=== PATIENT | female | born 2000 | race Two or more races ===

== ENCOUNTER 2019-03-17 05:20 | Inpatient (IN) | payer MEDICAID ==
[~2019-03-17 05:20] MED LIST: Bupivacaine 0.25% 10 ML SDV ONE; ePHEDrine/Normal Saline 25 MG/5 ML Syringe ONE
[2019-03-17] MEDS ORDERED: Calcium Carbonate 500 MG Tab.Chew PO PRN (05:44)
[2019-03-17] MEDS ORDERED: Ondansetron 4 MG/2 ML SDV IVPUSH PRN ×2 (05:44→10:25)
[2019-03-17] MEDS ORDERED: Sodium Chloride 0.9% 10 ML Syringe FLUSH PRN (05:44)
[2019-03-17] MEDS ORDERED: Nalbuphine 10 MG/1 ML Vial IVPUSH PRN (05:44)
[2019-03-17] MEDS ORDERED: Lidocaine 1% 50 ML MDV INJECT ONE (05:44)
[2019-03-17] MEDS ORDERED: Oxytocin/Lactated Ringers 10 UNIT/1,000 ML BAG IV SCH ×3 (05:45→14:15)
[2019-03-17] MEDS: Lactated Ringers 1,000 ML IV SCH ×3 (08:23→11:14)
--- NOTE | 2019-03-17 09:45 | PCM.LDHP ---
L&D History of Present Illness - General Date of Service: 03/17/19 Admit Problem/Dx: Patient Status Order with Admit Dx/Problem 03/17/19 05:31 Patient Status [ADT] Routine 03/17/19 05:44 Patient Status [ADT] Routine Admission Diagnosis/Problem Admission Diagnosis/Problem Active labor Source of Information: Patient - History of Present Illness Introduction:: [place] is a 18 year old female at 38 weeks 6 days by 14 week ultrasound who presents for evaluation of possible rupture of membranes. She reports that she was starting to have contractions and started at around 3 AM and were about 10 minutes apart and were getting closer and closer together until they were about 3-4 minutes apart. At around 4 AM she had a gush of clear fluid and has had continuous leaking since then. She reports that the contractions continued after her water had broken and were about 2-3 minutes apart. She reports good movement. She presents she was having some light vaginal bleeding when she went to the restroom at the hospital around 9 AM. Timing/Duration: Reports: sudden onset (With gush of clear fluid at around 4 AM) , constant/continuous (Leaking of fluid since initial gush) Location, : Reports: Pelvic Quality: Reports: Ache, Throbbing Severity: Moderate Present Illness Comments:: [place] is a 18-year-old at 38 weeks 6 days by 14 week ultrasound. She has had routine care with Dr. Demarco starting at 14 weeks gestational age. Her has been overall uncomplicated. She was given TDaP vaccine at 20 weeks gestational age. Her has been complicated by: * Rubella equivocal status on initial testing * History of pyelonephritis labs Blood type: O+ Antibody screen: Negative First trimester hemoglobin: 11.6 on 09/24/2018 Platelets: 310 on 09/24/2018 Urine culture: Escherichia coli urinary tract infection treated. Negative repeat urine culture on 11/06/2018 Rubella status: Equivocal Hepatitis B surface antigen: Negative RPR: Negative HIV: Negative Gonorrhea: Negative Chlamydia: Negative Genetic screening tests: Declined One hour glucose tolerance test: 106 Second trimester hematocrit/hemoglobin: 11.1 on 12/31/2018 Platelets: 144 on 12/31/2018 GBS status: Negative - Related Data Allergies/Adverse Reactions: Allergies Allergy/AdvReac Type Severity Reaction Status Date / Time No Known Allergies Allergy Verified 03/17/19 05:50 Home Medications: Home Meds Pnv No.122/Iron/Folic Acid [ Multi Tablet] 1 each PO DAILY 03/17/19 [ History] Past Medical History HEENT History: Reports: Other (See Below) Other HEENT History: Wears glasses Genitourinary History: Reports: Pyelonephritis 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 Neurological History: Reports: Migraines Hematologic History: Reports: Anemia - Past Surgical History Female Surgical History: Reports: Other (See Below) Other Female Surgeries/Procedures: laproscopy for dislodged IUD Social & Family History - Family History Family Medical History: Noncontributory - Tobacco Use Smoking Status *Q: Never Smoker - Alcohol Use Alcohol Use History: No - Recreational Drug Use Recreational Drug Use: No - Living Situation & Occupation Living situation: Reports: Single, with Significant Other Occupation: Employed H&P Review of Systems - Review of Systems: Review Of Systems: See Below General: Denies: Fever, Chills, Malaise, Weakness HEENT: Reports: Glasses. Denies: Headaches, Rhinitis, Post Nasal Drip, Sinus Congestion, Sore Throat, Visual Changes Pulmonary: Denies: Shortness of Breath, Wheezing, Pleuritic Chest Pain, Cough Cardiovascular: Denies: Chest Pain, Palpitations, Dyspnea on Exertion, Orthopnea Gastrointestinal: Denies: Abdominal Pain, Constipation, Diarrhea, Nausea, Vomiting Genitourinary: Denies: Dysuria, Frequency, Burning, Pain, Urgency Musculoskeletal: Reports: Back Pain Skin: Denies: Rash, Lesions Psychiatric: Denies: Depression, Anxiety L&D Exam - Exam Exam: See Below - Vital Signs Vital Signs: Last Vital Signs Temp 36.2 C 03/17/19 05:45 Pulse 103 H 03/17/19 05:45 Resp 16 03/17/19 05:45 BP 103/68 03/17/19 05:45 Pulse Ox 98 03/17/19 05:45 Weight: 77.564 kg - OB Specific Contraction Duration (sec): 45-60 Contraction Frequency (min): 2-4 Contraction Intensity: Moderate to Strong Movement: Active Heart Tones: Present Heart Tones per Min: 145 (+15 x 15 accelerations, no decelerations) Heart Rate (FHR) Variability: Moderate (6-25 bmp) Presentation: Vertex Estimated Weight: 6.5-7 pounds by Thiago's - Adan Score Adan Score Cervix Position: Midposition Adan Score Consistency: Soft Adan Score Effacement: >80% (80%) Adan Score Dilation: > 5 cm (5 cm) Adan Score Infant's Station: -3 Adan Score Total: 9 - Exam General: Alert, Oriented HEENT: Conjunctiva Clear, EOMI Neck: Supple, Trachea Midline Lungs: Clear to Auscultation, Normal Respiratory Effort Cardiovascular: Regular Rate, Regular Rhythm GI/Abdominal Exam: Soft, Non-Tender, No Distention. No: Guarding, Rigid, Rebound Genitourinary: Normal external exam Extremities: Normal Inspection, Non-Tender, No Pedal Edema Skin: Warm, Dry, Intact Psychiatric: Alert, Normal Affect, Normal Mood - Patient Data Lab Results Last 24 hrs: Laboratory Results - last 24 hr 03/17/19 Range/Units 06:15 WBC 6.43 (3.98-10.04) K/mm3 RBC 3.94 L (3.98-5.22) M/mm3 Hgb 12.2 (11.2-15.7) gm/dl Hct 35.5 (34.1-44.9) % MCV 90.1 (79.4-94.8) fl MCH 31.0 (25.6-32.2) pg MCHC 34.4 (32.2-35.5) g/dl RDW Std Deviation 44.8 (36.4-46.3) fL Plt Count 202 (182-369) K/mm3 MPV 9.0 L (9.4-12.3) fl Neut % (Auto) 68.3 (34.0-71.1) % Lymph % (Auto) 20.8 (19.3-51.7) % [place] % (Auto) 7.9 (4.7-12.5) % Eos % (Auto) 2.2 (0.7-5.8) Baso % (Auto) 0.3 (0.1-1.2) % Neut # (Auto) 4.39 (1.56-6.13) K/mm3 Lymph # (Auto) 1.34 (1.18-3.74) K/mm3 [place] # (Auto) 0.51 H (0.24-0.36) K/mm3 Eos # (Auto) 0.14 (0.04-0.36) K/mm3 Baso # (Auto) 0.02 (0.01-0.08) K/mm3 Result Diagrams: 03/17/19 06:15 - Problem List (1) 38 weeks gestation of SNOMED Code(s): 06439544 ICD Code: Z3A.38 - 38 WEEKS GESTATION OF Status: Acute Current Visit: Yes (2) Rubella non-immune status, antepartum SNOMED Code(s): 452236737 ICD Code: O99.89 - OTH DISEASES AND CONDITIONS COMPL PREG/CHLDBRTH; Z28.3 - UNDERIMMUNIZATION STATUS Status: Acute Current Visit: Yes Problem List Initiated/Reviewed/Updated: Yes Orders Last 24hrs: Active Orders 24 hr Category Date Time Status Patient Status [ADT] Routine ADT 03/17/19 05:44 Active Activity as Tolerated [RC] PFP Care 03/17/19 05:44 Active Communication Order [RC] ASDIRECTED Care 03/17/19 05:44 Active Notify Provider [RC] PFP Care 03/17/19 05:44 Active Notify Provider [RC] PRN Care 03/17/19 05:44 Active Peripheral IV Care [RC] Q2HR Care 03/17/19 05:45 Active Pump Management, Intrathecal [RC] ASDIRECTED Care 03/17/19 05:45 Active Urinary Catheter Assessment [RC] ASDIRECTED Care 03/17/19 05:44 Active Regular Diet [DIET] Diet 03/17/19 Breakfast Active BLOOD BANK HOLD SPECIMEN [BBK] Stat Lab 03/17/19 05:44 Ordered RAPID PLASMA REAGIN,RPR [CHEM] Stat Lab 03/17/19 06:15 Received Calcium Carbonate [Tums] Med 03/17/19 05:44 Active 1,000 mg PO Q2H PRN Lactated Ringers [Ringers, Lactated] 1,000 ml Med 03/17/19 05:45 Active IV ASDIRECTED Nalbuphine [Nubain] Med 03/17/19 05:44 Active 10 mg IVPUSH Q2H PRN Ondansetron [Zofran] Med 03/17/19 05:44 Active 4 mg IVPUSH Q4H PRN Oxytocin/Lactated Ringers [Pitocin in LR 10 Units/1,000 Med 03/17/19 05:45 Active ML] 10 unit in 1,000 ml IV .CONTINUOUS Oxytocin/Lactated Ringers [Pitocin in LR 10 Units/1,000 Med 03/17/19 08:30 Active ML] 10 unit in 1,000 ml IV TITRATE Sodium Chloride 0.9% [Saline Flush] Med 03/17/19 05:44 Active 10 ml FLUSH ASDIRECTED PRN Electronic Heart Tones Ext w TOCO [WOMSER] Oth 03/17/19 05:44 Ordered Routine Electronic Heart Tones Internal [WOMSER] Per Unit Oth 03/17/19 05:44 Ordered Routine Peripheral IV Insertion Adult [OM.PC] Routine Oth 03/17/19 05:44 Ordered Resuscitation Status Routine Resus Stat 03/17/19 05:31 Ordered Medication Orders Calcium Carbonate/Glycine (Tums) 1,000 mg PO Q2H PRN PRN Reason: Indigestion Lactated Ringer's (Ringers, Lactated) 1,000 mls @ 100 mls/hr IV ASDIRECTED SARABJIT Last Admin: 03/17/19 08:23 Dose: 100 mls/hr Oxytocin/Lactated Ringer's (Pitocin In Lr 10 Units/1,000 Ml) 10 unit in 1,000 mls @ 500 mls/hr IV .CONTINUOUS SARABJIT Oxytocin/Lactated Ringer's (Pitocin In Lr 10 Units/1,000 Ml) 10 unit in 1,000 mls @ 12 mls/hr IV TITRATE SARABJIT; Protocol Last Titration: 03/17/19 08:55 Dose: 4 munits/min, 24 mls/hr Admin: 03/17/19 08:23 Dose: 2 munits/min, 12 mls/hr Nalbuphine HCl (Nubain) 10 mg IVPUSH Q2H PRN PRN Reason: Pain Ondansetron HCl (Zofran) 4 mg IVPUSH Q4H PRN PRN Reason: Nausea/Vomiting Sodium Chloride (Saline Flush) 10 ml FLUSH ASDIRECTED PRN PRN Reason: Keep Vein Open Assessment/Plan Comment:: Refer to observation for spontaneous rupture of membranes Start Pitocin for augmentation of labor with spacing out of contractions after being on labor and delivery Continuous monitoring Place IV and have Lactated Ringer's at 125 ml/hr May have small amounts of regular diet Activity as tolerated May have epidural as desired Plans to breast-feed after delivery Anticipate vaginal delivery unless otherwise indicated Christian Copeland M.D. 9:52 AM 05/17/2018
[2019-03-17] MEDS ORDERED: fentaNYL 100 MCG/2 ML SDV EPIDUR PRN (10:25)
[2019-03-17] MEDS ORDERED: fentaNYL/Bupivacaine/NS 2 MCG-0.125% 250 ML EPIDUR PRN (10:25)
--- NOTE | 2019-03-17 10:28 | PCM.PREANE ---
Preanesthetic Assessment - Anesthesia/Transfusion/Family Hx Anesthesia History: Prior Anesthesia Without Reaction Family History of Anesthesia Reaction: No Transfusion History: No Prior Transfusion(s) Intubation History: Unknown - Review of Systems General: No Symptoms Pulmonary: No Symptoms Cardiovascular: No Symptoms Gastrointestinal: No Symptoms Neurological: No Symptoms (back pain with ), Seizure (at age of 9, no more to note of.) Other: Reports: None - Physical Assessment NPO Status Date: 03/17/19 NPO Status Time: 07:30 Vital Signs: Last Vital Signs Temp 36.2 C 03/17/19 05:45 Pulse 103 H 03/17/19 05:45 Resp 16 03/17/19 05:45 BP 103/68 03/17/19 05:45 Pulse Ox 98 03/17/19 05:45 Height: 1.55 m Weight: 77.564 kg ASA Class: 2 Mental Status: Alert & Oriented x3 Airway Class: Mallampati = 2 Dentition: Reports: Normal Dentition, Caries Thyro-Mental Finger Breadths: 3 Mouth Opening Finger Breadths: 3 ROM/Head Extension: Full Lungs: Clear to Auscultation, Normal Respiratory Effort Cardiovascular: Regular Rate, Regular Rhythm, No Murmurs - Lab Values: Laboratory Last Values WBC 6.43 K/mm3 (3.98-10.04) 03/17/19 06:15 RBC 3.94 M/mm3 (3.98-5.22) L 03/17/19 06:15 Hgb 12.2 gm/dl (11.2-15.7) 03/17/19 06:15 Hct 35.5 % (34.1-44.9) 03/17/19 06:15 MCV 90.1 fl (79.4-94.8) 03/17/19 06:15 MCH 31.0 pg (25.6-32.2) 03/17/19 06:15 MCHC 34.4 g/dl (32.2-35.5) 03/17/19 06:15 RDW Std Deviation 44.8 fL (36.4-46.3) 03/17/19 06:15 Plt Count 202 K/mm3 (182-369) 03/17/19 06:15 MPV 9.0 fl (9.4-12.3) L 03/17/19 06:15 Neut % (Auto) 68.3 % (34.0-71.1) 03/17/19 06:15 Lymph % (Auto) 20.8 % (19.3-51.7) 03/17/19 06:15 [place] % (Auto) 7.9 % (4.7-12.5) 03/17/19 06:15 Eos % (Auto) 2.2 (0.7-5.8) 03/17/19 06:15 Baso % (Auto) 0.3 % (0.1-1.2) 03/17/19 06:15 Neut # (Auto) 4.39 K/mm3 (1.56-6.13) 03/17/19 06:15 Lymph # (Auto) 1.34 K/mm3 (1.18-3.74) 03/17/19 06:15 [place] # (Auto) 0.51 K/mm3 (0.24-0.36) H 03/17/19 06:15 Eos # (Auto) 0.14 K/mm3 (0.04-0.36) 03/17/19 06:15 Baso # (Auto) 0.02 K/mm3 (0.01-0.08) 03/17/19 06:15 Above labs reviewed and noted and within acceptable ranges to proceed with epidural if desired. - Allergies Allergies/Adverse Reactions: Allergies Allergy/AdvReac Type Severity Reaction Status Date / Time No Known Allergies Allergy Verified 03/17/19 05:50 - Anesthesia Plan Pre-Op Medication Ordered: None - Acknowledgements Anesthesia Type Planned: Epidural Pt an Appropriate Candidate for the Planned Anesthesia: Yes Alternatives and Risks of Anesthesia Discussed w Pt/Guardian: Yes Pt/Guardian Understands and Agrees with Anesthesia Plan: Yes PreAnesthesia Questionnaire HEENT History: Reports: Other (See Below) Other HEENT History: Wears glasses Genitourinary History: Reports: Pyelonephritis 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: Neurological History: Reports: Migraines Hematologic History: Reports: Anemia - Past Surgical History Female Surgical History: Reports: Other (See Below) Other Female Surgeries/Procedures: laproscopy for dislodged IUD - SUBSTANCE USE Smoking Status *Q: Never Smoker Recreational Drug Use History: No - HOME MEDS Home Medications: Home Meds Pnv No.122/Iron/Folic Acid [ Multi Tablet] 1 each PO DAILY 11/03/19 [ History] - CURRENT (IN HOUSE) MEDS Current Meds: Current Medications Calcium Carbonate/Glycine (Tums) 1,000 mg PO Q2H PRN PRN Reason: Indigestion Ephedrine Sulfate (Ephedrine Sulfate) 5 mg IVPUSH ASDIRECTED PRN PRN Reason: Hypotension Fentanyl (Sublimaze) 100 mcg EPIDUR Q3H PRN PRN Reason: Pain Fentanyl/Bupivacaine HCl (Fentanyl/Bupivacaine/Ns 2 Mcg-0.125% 250 Ml) ml EPIDUR CONTINUOUS PRN PRN Reason: Pain Lactated Ringer's (Ringers, Lactated) 1,000 mls @ 100 mls/hr IV ASDIRECTED SARABJIT Last Admin: 03/17/19 08:23 Dose: 100 mls/hr Oxytocin/Lactated Ringer's (Pitocin In Lr 10 Units/1,000 Ml) 10 unit in 1,000 mls @ 500 mls/hr IV .CONTINUOUS SARABJIT Oxytocin/Lactated Ringer's (Pitocin In Lr 10 Units/1,000 Ml) 10 unit in 1,000 mls @ 12 mls/hr IV TITRATE SARABJIT; Protocol Last Titration: 03/17/19 08:55 Dose: 4 munits/min, 24 mls/hr Nalbuphine HCl (Nubain) 10 mg IVPUSH Q2H PRN PRN Reason: Pain Ondansetron HCl (Zofran) 4 mg IVPUSH Q4H PRN PRN Reason: Nausea/Vomiting Ondansetron HCl (Zofran) 4 mg IVPUSH ONETIME PRN PRN Reason: Nausea/Vomiting Sodium Chloride (Saline Flush) 10 ml FLUSH ASDIRECTED PRN PRN Reason: Keep Vein Open Discontinued Medications Lidocaine HCl (Xylocaine 1%) 20 ml INJECT ONETIME ONE Stop: 03/17/19 05:45
[2019-03-17] MEDS: ePHEDrine 50 MG/ML SDV IVPUSH PRN ×2 (11:11→11:14)
--- NOTE | 2019-03-17 11:17 | PCM.SN ---
- Free Text/Narrative Note: Anesthesia Note: Epidural rate decreased to 8ml/hr, to support blood pressure control.
[2019-03-17] MEDS ORDERED: Hydrocortisone Acetate 25 MG Supp RECTAL PRN (14:12)
[2019-03-17] MEDS ORDERED: Benzocaine/Menthol 20%-0.5% Spray 56 GM Canister TOP PRN (14:12)
[2019-03-17] MEDS ORDERED: Measles, Mumps & Rubella Vaccine 0.5 ML SDV SUBCUT ONE (14:12)
[2019-03-17] MEDS ORDERED: Magnesium Hydroxide 400 MG/5 ML Susp 30 ML Cup PO PRN (14:12)
[2019-03-17] MEDS ORDERED: Witch Hazel Medicated Pads 40/Jar TOP PRN (14:12)
--- NOTE | 2019-03-17 14:18 | PCM.DEL ---
L & D Note - General Info Date of Service: 03/17/19 Mother's Due Date: 03/25/19 - Delivery Note Labor: Spontaneous, Augmented by Oxytocin Cervical Ripening Method: Oxytocin Delivery Outcome: Livebirth Delivery Method: Spontaneous Vaginal Delivery-Single Presentation: Right Occiput Anterior (TANNER) Nuchal Cord: None Prep: Povidone-Iodine (Betadine Anesthesia Type: Epidural Amniotic Fluid Description: Clear Episiotomy Type: None Laceration: None Placenta: Intact, Spontaneous Cord: 3 Vessels Estimated Blood Loss: 200 Resuscitation Needed: No [place]: Bulb Syringe, Stimulated, Warmed, [place] Used Provider: Christian Copeland Score 1 min: 8 Score 5 min: 9 Second Stage Interventions: Reports: Pushing Effectively, Pushing, Stirrups/Leg Supports Delivery Comments (Free Text/Narrative):: Stage I: [place] was admitted for spontaneous rupture of membranes. On admission her cervix was dilated to 4 cm. She was GBS negative. She was started on Pitocin for augmentation of labor with spacing out of her contractions. She was given an epidural for anesthesia. She progressed to complete and pushing. Stage II: On 03/17/2019 she had a normal vaginal delivery of a live female infant at 13:43. Apgars of 8 & 9. Weight of 3100 g (6 lbs 13.3 oz). Length of 19.5 inches. There was no nuchal cord. Infant was delivered in TANNER position. The cord was doubly clamped and cut by father of the infant. Infant was placed on mother's abdomen. Stage III: She had a spontaneous delivery of an intact placenta in [place] presentation. Three vessel cord. She was given pitocin and fundal massage. She had no lacerations. Mom and baby were stable to recovery. EBL of 200 mL. Christian Copeland MD 2:15 PM 03/17/2019 - General Info Date of Service: 03/17/19 - Patient Data Vitals - Most Recent: Last Vital Signs Temp 36.2 C 03/17/19 05:45 Pulse 103 H 03/17/19 05:45 Resp 16 03/17/19 05:45 BP 103/68 03/17/19 05:45 Pulse Ox 98 03/17/19 05:45 Weight - Most Recent: 77.564 kg I&O - Last 24 Hours: Intake & Output 03/16/19 03/17/19 03/17/19 23:59 06:59 14:59 Intake Total 2830 Output Total 700 Balance 2130 Lab Results Last 24 Hours: Laboratory Results - last 24 hr 03/17/19 Range/Units 06:15 WBC 6.43 (3.98-10.04) K/mm3 RBC 3.94 L (3.98-5.22) M/mm3 Hgb 12.2 (11.2-15.7) gm/dl Hct 35.5 (34.1-44.9) % MCV 90.1 (79.4-94.8) fl MCH 31.0 (25.6-32.2) pg MCHC 34.4 (32.2-35.5) g/dl RDW Std Deviation 44.8 (36.4-46.3) fL Plt Count 202 (182-369) K/mm3 MPV 9.0 L (9.4-12.3) fl Neut % (Auto) 68.3 (34.0-71.1) % Lymph % (Auto) 20.8 (19.3-51.7) % [place] % (Auto) 7.9 (4.7-12.5) % Eos % (Auto) 2.2 (0.7-5.8) Baso % (Auto) 0.3 (0.1-1.2) % Neut # (Auto) 4.39 (1.56-6.13) K/mm3 Lymph # (Auto) 1.34 (1.18-3.74) K/mm3 [place] # (Auto) 0.51 H (0.24-0.36) K/mm3 Eos # (Auto) 0.14 (0.04-0.36) K/mm3 Baso # (Auto) 0.02 (0.01-0.08) K/mm3 Med Orders - Current: Current Medications Acetaminophen (Tylenol) 650 mg PO Q6H PRN PRN Reason: mild pain or fever Benzocaine/Menthol (Dermoplast Pain Relief [place]) 0 gm TOP ASDIRECTED PRN PRN Reason: Perineal Comfort Measure Docusate Sodium (Colace) 100 mg PO BID PRN PRN Reason: Constipation Hydrocortisone Acetate (Anucort-Hc) 25 mg RECTAL BID PRN PRN Reason: Hemorrhoid pain Oxytocin/Lactated Ringer's (Pitocin In Lr 10 Units/1,000 Ml) 10 unit in 1,000 mls @ 100 mls/hr IV TITRATE SARABJIT; Protocol Ibuprofen (Motrin) 600 mg PO Q6H PRN PRN Reason: Mild pain or fever Magnesium Hydroxide (Milk Of Magnesia) 30 ml PO BEDTIME PRN PRN Reason: Constipation Measles/Mumps/Rubella Vaccine Live (M-M-R Ii Vaccine) 0.5 ml SUBCUT .ONCE ONE Stop: 03/17/19 14:13 Prenat Multivit/[place]/Iron/Folic Ac ( Plus Iron) 1 each PO DAILY SARABJIT [place] (Tucks) 1 pad TOP ASDIRECTED PRN PRN Reason: Perineal Comfort Measure Discontinued Medications Calcium Carbonate/Glycine (Tums) 1,000 mg PO Q2H PRN PRN Reason: Indigestion Ephedrine Sulfate (Ephedrine Sulfate) 5 mg IVPUSH ASDIRECTED PRN PRN Reason: Hypotension Last Admin: 03/17/19 11:14 Dose: 5 mg Fentanyl (Sublimaze) 100 mcg EPIDUR Q3H PRN PRN Reason: Pain Last Admin: 03/17/19 10:35 Dose: 100 mcg Fentanyl/Bupivacaine HCl (Fentanyl/Bupivacaine/Ns 2 Mcg-0.125% 250 Ml) 0 ml EPIDUR CONTINUOUS PRN PRN Reason: Pain Last Admin: 03/17/19 10:35 Dose: 250 ml Lactated Ringer's (Ringers, Lactated) 1,000 mls @ 100 mls/hr IV ASDIRECTED SARABJIT Last Admin: 03/17/19 11:14 Dose: 100 mls/hr Oxytocin/Lactated Ringer's (Pitocin In Lr 10 Units/1,000 Ml) 10 unit in 1,000 mls @ 500 mls/hr IV .CONTINUOUS SARABJIT Oxytocin/Lactated Ringer's (Pitocin In Lr 10 Units/1,000 Ml) 10 unit in 1,000 mls @ 12 mls/hr IV TITRATE SARABJIT; Protocol Last Titration: 03/17/19 13:44 Dose: 500 mls/hr Lidocaine HCl (Xylocaine 1%) 20 ml INJECT ONETIME ONE Stop: 03/17/19 05:45 Nalbuphine HCl (Nubain) 10 mg IVPUSH Q2H PRN PRN Reason: Pain Ondansetron HCl (Zofran) 4 mg IVPUSH Q4H PRN PRN Reason: Nausea/Vomiting Ondansetron HCl (Zofran) 4 mg IVPUSH ONETIME PRN PRN Reason: Nausea/Vomiting Sodium Chloride (Saline Flush) 10 ml FLUSH ASDIRECTED PRN PRN Reason: Keep Vein Open - Problem List & Annotations (1) 38 weeks gestation of SNOMED Code(s): 06733722 Code(s): Z3A.38 - 38 WEEKS GESTATION OF Status: Acute Current Visit: Yes (2) Rubella non-immune status, antepartum SNOMED Code(s): 615383114 Code(s): O99.89 - OTH DISEASES AND CONDITIONS COMPL PREG/CHLDBRTH; Z28.3 - UNDERIMMUNIZATION STATUS Status: Acute Current Visit: Yes (3) Vaginal delivery SNOMED Code(s): 116398678 Code(s): O80 - ENCOUNTER FOR FULL-TERM UNCOMPLICATED DELIVERY Status: Acute Current Visit: Yes - Problem List Review Problem List Initiated/Reviewed/Updated: Yes - My Orders Last 24 Hours: My Active Orders 03/17/19 05:31 Resuscitation Status Routine 03/17/19 06:15 RAPID PLASMA REAGIN,RPR [CHEM] Stat 03/17/19 14:12 Patient Status [ADT] Routine Activity as Tolerated [RC] PER UNIT ROUTINE May Shower [RC] ASDIRECTED Notify Provider Vital Signs [RC] ASDIRECTED Vital Signs [RC] ASDIRECTED Acetaminophen [Tylenol] 650 mg PO Q6H PRN Benzocaine/Menthol [Dermoplast Pain Relief [place]] See Dose Instructions TOP ASDIRECTED PRN Docusate Sodium [Colace] 100 mg PO BID PRN Hydrocortisone Acetate [Anucort-HC] 25 mg RECTAL BID PRN Ibuprofen [Motrin] 600 mg PO Q6H PRN Magnesium Hydroxide [Milk of Magnesia] 30 ml PO BEDTIME PRN Measles, Mumps & Rubella [M-M-R II Vaccine] 0.5 ml SUBCUT .ONCE ONE [place] [Tucks] 1 pad TOP ASDIRECTED PRN Assess Lochia [WOMSER] Per Unit Routine Assess Uterine Involution [WOMSER] Per Unit Routine Breast Pump [WOMSER] Per Unit Routine Ice Therapy [OM.PC] Per Unit Routine Medication Administration Instruction [OM.PC] Routine Perineal Care [OM.PC] Per Unit Routine Peripheral IV Discontinue [OM.PC] Routine Sitz Bath [OM.PC] Per Unit Routine 03/17/19 14:15 Oxytocin/Lactated Ringers [Pitocin in LR 10 Units/1,000 ML] 10 unit in 1,000 ml IV TITRATE Heat Therapy [OM.PC] PRN 03/17/19 Lunch Regular Diet [DIET] 03/18/19 09:00 Vit with Ca/FA/Iron [ Plus Iron] 1 each PO DAILY 03/18/19 14:15 Heat Therapy [OM.PC] PRN - Plan Plan:: Admit to inpatient following normal spontaneous vaginal delivery Continue Pitocin per unit protocol following delivery of placenta and lactated Ringer's until tolerating regular diet Regular diet Vitals per unit routine Ibuprofen and Tylenol for pain control Assist with breast-feeding as needed Continue to monitor lochia MMR vaccine prior to discharge for rubella equivocal status Anticipate discharge home on day #1 Christian Copeland MD 2:15 p.m. 03/17/2019
[2019-03-17] MEDS: Ibuprofen 600 MG Tab PO PRN (19:34)
[2019-03-17] MEDS: Docusate Sodium 100 MG Cap PO PRN (19:34)
[2019-03-18] MEDS: Acetaminophen 325 MG Tab PO PRN ×2 (00:06→08:17)
[2019-03-18] MEDS: Ibuprofen 600 MG Tab PO PRN ×2 (03:18→13:56)
--- NOTE | 2019-03-18 07:20 | PCM48HPAN ---
Post Anesthesia Note - EVALUATION WITHIN 48HRS OF ANESTHETIC Vital Signs in Normal Range: Yes Patient Participated in Evaluation: Yes Respiratory Function Stable: Yes Airway Patent: Yes Cardiovascular Function Stable: Yes Hydration Status Stable: Yes Pain Control Satisfactory: Yes Nausea and Vomiting Control Satisfactory: Yes Mental Status Recovered: Yes Vital Signs: Last Vital Signs Temp 36.3 C 03/18/19 03:18 Pulse 85 03/18/19 03:18 Resp 14 03/18/19 03:18 BP 92/56 L 03/18/19 03:18 Pulse Ox 99 03/18/19 03:18 - COMMENTS/OBSERVATIONS Free Text/Narrative:: no anesthesia complications noted
[2019-03-18] MEDS: Docusate Sodium 100 MG Cap PO PRN (08:17)
--- NOTE | 2019-03-18 08:30 | PCM.SN ---
- Free Text/Narrative Note: Post Progress Note PPD # 1 Subjective: Doing well overall. Ambulating without difficulty. Reports that she did have 1 episode of lightheadedness and dizziness after delivery yesterday but has not had return of this since. Lochia minimal. Voiding without difficulty. Tolerating regular diet without nausea or vomiting. Pain controlled with oral medications. Reports that she is having moderate amount of cramping with breast -feeding. Breast-feeding with minimal difficulty. Objective: Vitals: Vital Signs - 24 hr 03/17/19 03/17/19 03/17/19 08:30 09:00 09:30 Temperature Pulse, 102 H 104 H 103 H Peripheral Respiratory Rate Blood Pressure 101/60 95/81 115/55 L O2 Sat by Pulse Oximetry 03/17/19 03/17/19 03/17/19 10:41 11:00 11:30 Temperature Pulse, 111 H 98 114 H Peripheral Respiratory Rate Blood Pressure 93/48 L 96/48 L O2 Sat by Pulse 97 Oximetry 03/17/19 03/17/19 03/17/19 12:00 12:30 13:00 Temperature Pulse, 116 H 106 H 118 H Peripheral Respiratory Rate Blood Pressure 96/37 L 111/49 L O2 Sat by Pulse Oximetry 03/17/19 03/17/19 03/17/19 13:30 14:00 14:30 Temperature Pulse, 125 H 109 H 101 H Peripheral Respiratory Rate Blood Pressure 152/79 H 95/52 L 82/48 L O2 Sat by Pulse Oximetry 03/17/19 03/17/19 03/17/19 15:00 15:30 16:00 Temperature Pulse, 103 H 100 112 H Peripheral Respiratory Rate Blood Pressure 92/53 L 91/52 L 92/52 L O2 Sat by Pulse Oximetry 03/17/19 03/17/19 03/17/19 16:30 19:35 19:36 Temperature 36.7 C Pulse, 99 95 Peripheral Respiratory 14 Rate Blood Pressure 96/56 L 94/50 L O2 Sat by Pulse 99 Oximetry 03/18/19 03:18 Temperature 36.3 C Pulse, 85 Peripheral Respiratory 14 Rate Blood Pressure 92/56 L O2 Sat by Pulse 99 Oximetry Physical Exam General: Alert and oriented, no acute distress Lungs: Clear to auscultation bilaterally Heart: Regular rate and rhythm Abdomen: Soft, minimal appropriate tenderness, non-distended, fundus midline, nontender, and at the umbilicus Extremities: No edema Laboratory Results - last 24 hr 03/17/19 Range/Units 06:15 RPR Non-reactive (NONREACTIVE) ASSESSMENT: 18-year-old female 002 s/p normal vaginal delivery PPD #1, complicated by rubella equivocal status and history of pyelonephritis PLAN: Doing well Breast-feeding with minimal difficulty. Assist as needed Lochia minimal. Continue to monitor for appropriate lochia. Continue routine care MMR vaccine prior to discharge Anticipate discharge home today Christian Copeland MD 8:29 AM 03/18/2019
--- NOTE | 2019-03-18 08:35 | PCM.DCSUM1 ---
Discharge Summary - Hospital Course Free Text/Narrative:: Stage I: [place] was admitted for spontaneous rupture of membranes. On admission her cervix was dilated to 4 cm. She was GBS negative. She was started on Pitocin for augmentation of labor with spacing out of her contractions. She was given an epidural for anesthesia. She progressed to complete and pushing. Stage II: On 03/17/2019 she had a normal vaginal delivery of a live female at 13:43. Apgars of 8 & 9. Weight of 3100 g (6 lbs 13.3 oz). Length of 19.5 inches. There was no nuchal cord. was delivered in TANNER position. The cord was doubly clamped and cut by father of the . Infant was placed on mother's abdomen. Stage III: She had a spontaneous delivery of an intact placenta in Mireya presentation. Three vessel cord. She was given pitocin and fundal massage. She had no lacerations. Mom and baby were stable to recovery. EBL of 200 mL. HPI Initial Comments: Stage I: [place] was admitted for spontaneous rupture of membranes. On admission her cervix was dilated to 4 cm. She was GBS negative. She was started on Pitocin for augmentation of labor with spacing out of her contractions. She was given an epidural for anesthesia. She progressed to complete and pushing. Stage II: On 03/17/2019 she had a normal vaginal delivery of a live female at 13:43. Apgars of 8 & 9. Weight of 3100 g (6 lbs 13.3 oz). Length of 19.5 inches. There was no nuchal cord. was delivered in TANNER position. The cord was doubly clamped and cut by father of the infant. was placed on mother's abdomen. Stage III: She had a spontaneous delivery of an intact placenta in Mireya presentation. Three vessel cord. She was given pitocin and fundal massage. She had no lacerations. Mom and baby were stable to recovery. EBL of 200 mL. Brief History: Stage I: [place] was admitted for spontaneous rupture of membranes. On admission her cervix was dilated to 4 cm. She was GBS negative. She was started on Pitocin for augmentation of labor with spacing out of her contractions. She was given an epidural for anesthesia. She progressed to complete and pushing. Stage II: On 03/17/2019 she had a normal vaginal delivery of a live female infant at 13:43. Apgars of 8 & 9. Weight of 3100 g (6 lbs 13.3 oz). Length of 19.5 inches. There was no nuchal cord. Infant was delivered in TANNER position. The cord was doubly clamped and cut by father of the . Infant was placed on mother's abdomen. Stage III: She had a spontaneous delivery of an intact placenta in Mireya presentation. Three vessel cord. She was given pitocin and fundal massage. She had no lacerations. Mom and baby were stable to recovery. EBL of 200 mL. Diagnosis: Stroke: No - Discharge Data Discharge Date: 03/18/19 Discharge Disposition: Home, Self-Care 01 Condition: Good - Referral to Home Health Primary Care Physician: Miguelina Demarco MD - Discharge Diagnosis/Problem(s) (1) 38 weeks gestation of SNOMED Code(s): 19975634 ICD Code: Z3A.38 - 38 WEEKS GESTATION OF Status: Acute (2) Rubella non-immune status, antepartum SNOMED Code(s): 546503698 ICD Code: O99.89 - OTH DISEASES AND CONDITIONS COMPL PREG/CHLDBRTH; Z28.3 - UNDERIMMUNIZATION STATUS Status: Acute (3) Vaginal delivery SNOMED Code(s): 435627543 ICD Code: O80 - ENCOUNTER FOR FULL-TERM UNCOMPLICATED DELIVERY Status: Acute - Patient Summary/Data Complications: None Consults: None Hospital Course: [place] was admitted for spontaneous rupture membranes with clear fluid. On admission her cervix was dilated to 4 cm. She was GBS negative. She was given pitocin for augmentation after she had spacing out of her contractions. She was given an epidural for anesthesia. She progressed to complete and began pushing. On 03/17/2019 she had a normal vaginal delivery of a live female at 13:43. Apgars of 8 and 9. Weight of 3100 g (6 pounds 13.3 ounces). Her course was uneventful. Her pain was well controlled and she had minimal lochia. She was ambulating, tolerating a regular diet and voiding normally. She was breast-feeding with minimal difficulty. She was afebrile and her hematocrit was 35.5 on admission. She desired to be discharged home in the afternoon of PPD #1. Her blood type is O+. Patient given MMR vaccine prior to discharge due to rubella equivocal status. - Patient Instructions Diet: Regular Diet as Tolerated Activity: Apply Ice, As Tolerated Activity, Other: Nothing in the vagina for 6 weeks Driving: May Drive Today Showering/Bathing: May Shower Notify Provider of: Fever, Increased Pain, Swelling and Redness, Drainage, Nausea and/or Vomiting Other/Special Instructions: Please contact your physician's office if you have heavy vaginal bleeding enough to soak a pad in less than an hour for several hours. Monitor for any signs of an infection in the breasts with severe pain or redness of the breast. - Discharge Plan *PRESCRIPTION DRUG MONITORING PROGRAM REVIEWED*: Not Applicable *COPY OF PRESCRIPTION DRUG MONITORING REPORT IN PATIENT IVAN: Not Applicable Home Medications: Home Meds Pnv No.122/Iron/Folic Acid [ Multi Tablet] 1 each PO DAILY 03/17/19 [ History] Acetaminophen [Tylenol] 650 mg PO Q6H PRN tablet 03/18/19 [Rx] Benzocaine/Menthol [Dermoplast Pain Relief [place]] 1 spray TOP ASDIRECTED PRN canister 03/18/19 [Rx] Docusate Sodium [Colace] 100 mg PO BID PRN cap 03/18/19 [Rx] Hydrocortisone Acetate [Anucort-HC] 25 mg RECTAL BID PRN supp 03/18/19 [Rx] Ibuprofen [Motrin] 600 mg PO Q6H PRN tablet 03/18/19 [Rx] Witch Asha [Tucks] 1 pad TOP ASDIRECTED PRN pad 03/18/19 [Rx] Patient Handouts: Breast Pumping Tips, and Self-Care, Vaginal Delivery, Care After Referrals: Miguelina Demarco MD [Primary Care Provider] - (Follow-up with routine visit in 3-6 weeks or earlier as needed.) - Discharge Summary/Plan Comment DC Time >30 min.: No - Patient Data Vitals - Most Recent: Last Vital Signs Temp 36.3 C 03/18/19 03:18 Pulse 85 03/18/19 03:18 Resp 14 03/18/19 03:18 BP 92/56 L 03/18/19 03:18 Pulse Ox 99 03/18/19 03:18 Weight - Most Recent: 77.564 kg I&O - Last 24 hours: Intake & Output 03/17/19 03/18/19 03/18/19 22:59 06:59 14:59 Intake Total 1320 Balance 1320 Lab Results - Last 24 hrs: Laboratory Results - last 24 hr 03/17/19 Range/Units 06:15 RPR Non-reactive (NONREACTIVE) Med Orders - Current: Current Medications Acetaminophen (Tylenol) 650 mg PO Q6H PRN PRN Reason: mild pain or fever Last Admin: 03/18/19 08:17 Dose: 650 mg Benzocaine/Menthol (Dermoplast Pain Relief [place]) 0 gm TOP ASDIRECTED PRN PRN Reason: Perineal Comfort Measure Last Admin: 03/17/19 15:25 Dose: 1 applic Docusate Sodium (Colace) 100 mg PO BID PRN PRN Reason: Constipation Last Admin: 03/18/19 08:17 Dose: 100 mg Hydrocortisone Acetate (Anucort-Hc) 25 mg RECTAL BID PRN PRN Reason: Hemorrhoid pain Oxytocin/Lactated Ringer's (Pitocin In Lr 10 Units/1,000 Ml) 10 unit in 1,000 mls @ 100 mls/hr IV TITRATE SARABJIT; Protocol Ibuprofen (Motrin) 600 mg PO Q6H PRN PRN Reason: Mild pain or fever Last Admin: 03/18/19 03:18 Dose: 600 mg Magnesium Hydroxide (Milk Of Magnesia) 30 ml PO BEDTIME PRN PRN Reason: Constipation Prenat Multivit/Survey Instrument Operator/Iron/Folic Ac ( Plus Iron) 1 each PO DAILY SARABJIT Last Admin: 03/18/19 08:17 Dose: 1 each Witch Asha (Tucks) 1 pad TOP ASDIRECTED PRN PRN Reason: Perineal Comfort Measure Last Admin: 03/17/19 15:25 Dose: 1 applic Discontinued Medications Calcium Carbonate/Glycine (Tums) 1,000 mg PO Q2H PRN PRN Reason: Indigestion Ephedrine Sulfate (Ephedrine Sulfate) 5 mg IVPUSH ASDIRECTED PRN PRN Reason: Hypotension Last Admin: 03/17/19 11:14 Dose: 5 mg Fentanyl (Sublimaze) 100 mcg EPIDUR Q3H PRN PRN Reason: Pain Last Admin: 03/17/19 10:35 Dose: 100 mcg Fentanyl/Bupivacaine HCl (Fentanyl/Bupivacaine/Ns 2 Mcg-0.125% 250 Ml) 0 ml EPIDUR CONTINUOUS PRN PRN Reason: Pain Last Admin: 03/17/19 10:35 Dose: 250 ml Lactated Ringer's (Ringers, Lactated) 1,000 mls @ 100 mls/hr IV ASDIRECTED SARABJIT Last Admin: 03/17/19 11:14 Dose: 100 mls/hr Oxytocin/Lactated Ringer's (Pitocin In Lr 10 Units/1,000 Ml) 10 unit in 1,000 mls @ 500 mls/hr IV .CONTINUOUS SARABJIT Oxytocin/Lactated Ringer's (Pitocin In Lr 10 Units/1,000 Ml) 10 unit in 1,000 mls @ 12 mls/hr IV TITRATE SARABJIT; Protocol Last Titration: 03/17/19 13:44 Dose: 500 mls/hr Lidocaine HCl (Xylocaine 1%) 20 ml INJECT ONETIME ONE Stop: 03/17/19 05:45 Last Admin: 03/17/19 23:34 Dose: Not Given Measles/Mumps/Rubella Vaccine Live (M-M-R Ii Vaccine) 0.5 ml SUBCUT .ONCE ONE Stop: 03/17/19 14:13 Nalbuphine HCl (Nubain) 10 mg IVPUSH Q2H PRN PRN Reason: Pain Ondansetron HCl (Zofran) 4 mg IVPUSH Q4H PRN PRN Reason: Nausea/Vomiting Ondansetron HCl (Zofran) 4 mg IVPUSH ONETIME PRN PRN Reason: Nausea/Vomiting Sodium Chloride (Saline Flush) 10 ml FLUSH ASDIRECTED PRN PRN Reason: Keep Vein Open
[2019-03-18] MEDS ORDERED: Prenatal Multivitamin with Calcium/Folic Acid/Iron Tab PO SCH (09:00)
== END 2019-03-18 16:55 | disposition home or self-care (01) | DRG 807 ==
LOC: JD.OB 05:20 → JD.OBCHECK 05:20 → JD.OB 05:44 → OBSVTOIN 13:43 → JD.OB 13:44
PROVIDERS: ADMIT Obstetrics & Gynecology; ATTEND Obstetrics & Gynecology
PROC: 10E0XZZ Delivery of Products of Conception, External Approach (ICD-10-PCS; principal; 2019-03-17)
PROC: 3E0R3BZ Introduction of Anesthetic Agent into Spinal Canal, Percutaneous Approach (ICD-10-PCS; 2019-03-17)
PROC: 3E0234Z Introduction of Serum, Toxoid and Vaccine into Muscle, Percutaneous Approach (ICD-10-PCS; 2019-03-18)
DX: O80 Encounter for full-term uncomplicated delivery (principal); Z37.0 Single live birth; Z3A.38 38 weeks gestation of pregnancy; Z23 Encounter for immunization
CPT/HCPCS: 01967; 36415; 51702; 59025; 59409; 85025; 86592; 90707; A9270-GY; J2590; J3010; J3490; J7050; J7120